=== PATIENT | male | born 1950 | race African-American/Black ===

== ENCOUNTER 2022-09-27 12:15 | Emergency (ER) | payer OTHER ==
[~2022-09-27] VITALS: Ht 180.3 cm; Wt 113.4 kg
[2022-09-27 12:19] VITALS: BP_SYST 162; PULSE 87; RESP 16; TEMP 98.2; O2SAT 100
[2022-09-27] MEDS ORDERED: IBUPROFEN 800 MG TABLET PO ONE (13:30)
[2022-09-27] MEDS ORDERED: IBUP-1971 PO (13:44)
[2022-09-27] MEDS ORDERED: SOM350 PO (13:44)
== END 2022-09-27 13:56 | disposition home or self-care (01) ==
LOC: SED 12:15
DX: S43.402A Unspecified sprain of left shoulder joint, initial encounter (principal); Z79.899 Other long term (current) drug therapy; V49.40XA Driver injured in collision with unspecified motor vehicles in traffic accident, initial encounter; Y93.89 Activity, other specified; Y92.89 Other specified places as the place of occurrence of the external cause; Y99.8 Other external cause status
CPT/HCPCS: 71045; 73030; 99284